=== PATIENT | female | born 1960 | race American Indian/Alaskan Native ===

== ENCOUNTER 2018-11-01 10:27 | Emergency (ER) | payer OTHER ==
[2018-11-01 10:35] VITALS: BP 157/80
--- NOTE | 2018-11-01 12:54 | Emergency Department Report ---
ED Neck Pain/Injury HPI - General Chief Complaint: Headache Stated Complaint: HEADACHE Time Seen by Provider: 11/01/18 11:13 Mode of arrival: Ambulatory Limitations: No Limitations - History of Present Illness Initial Comments: Patient is a 58-year-old female who has past medical history of hypertension and CVA who also had a MRI of her neck several months ago and was told that she had just general joint disease who is presenting with left-sided neck pain that radiates down her left arm and into the left side of her head. Patient states this is a constant pain has been present but worsening over the past 3 months. Patient was scheduled by her orthopedic doctor to have steroid injections however she declined. Patient states she was told by her primary care physician to come to the emergency department to see a neurologist. Patient has no decreased strength is no focal neurological deficits she has no headache at this time. - Related Data Previous Rx's Medication Instructions Recorded Last Taken Type HYDROcodone/APAP 5-325 [[place] 1 each PO Q6HR PRN #10 tablet 11/01/18 Unknown Rx 5/325] Allergies Allergy/AdvReac Type Severity Reaction Status Date / Time No Known Allergies Allergy Unverified 11/01/18 10:32 ED Review of Systems ROS: Stated complaint: HEADACHE Other details as noted in HPI Comment: All other systems reviewed and negative ED Past Medical Hx - Past Medical History Previous Medical History?: Yes Hx Hypertension: Yes - Surgical History Past Surgical History?: No - Social History Smoking Status: Never Smoker Substance Use Type: None - Medications Home Medications: Home Medications Medication Instructions Recorded Confirmed Last Taken Type HYDROcodone/APAP 5-325 [[place] 1 each PO Q6HR PRN #10 tablet 11/01/18 Unknown Rx 5/325] ED Physical Exam - General Limitations: No Limitations General appearance: alert, in no apparent distress - Head Head exam: Present: atraumatic, normocephalic - Eye Eye exam: Present: normal appearance, PERRL, EOMI - ENT ENT exam: Present: mucous membranes moist - Neck Neck exam: Present: normal inspection, tenderness (left neck) - Respiratory Respiratory exam: Present: normal lung sounds bilaterally. Absent: respiratory distress, wheezes, rales, rhonchi - Cardiovascular Cardiovascular Exam: Present: regular rate, normal rhythm. Absent: systolic murmur, diastolic murmur, rubs, gallop - GI/Abdominal GI/Abdominal exam: Present: soft, normal bowel sounds. Absent: distended, tenderness, guarding - Extremities Exam Extremities exam: Present: normal inspection, full ROM, tenderness - Back Exam Back exam: Present: normal inspection - Neurological Exam Neurological exam: Present: alert, oriented X3 - Psychiatric Psychiatric exam: Present: normal affect, normal mood - Skin Skin exam: Present: warm, dry, intact, normal color. Absent: rash ED Course Vital Signs 11/01/18 10:34 Temperature 97.8 F Pulse Rate 70 Respiratory 18 Rate Blood Pressure 157/80 O2 Sat by Pulse 96 Oximetry ED Medical Decision Making - Medical Decision Making Had a lengthy conversation with the patient regarding use of the emergency department. Unfortunately I believe the patient has been advised to come to the emergency department to see a neurologist for an issue that has been present for approximately 3 months. Patient urged to return back to the orthopedic physician. Patient was given several neurologist for follow-up. Patient states that the naproxen she takes her pain is not helping and well as several days of Vicodin. The patient will need to see primary care or another physician for continued pain management. Patient does have [employer] [place] and it could also use the [place] for all these resources well. Critical care attestation.: If time is entered above; I have spent that time in minutes in the direct care of this critically ill patient, excluding procedure time. ED Disposition Clinical Impression: Cervical radiculopathy Disposition: TO HOME OR SELFCARE Is pt being admited?: No Does the pt Need Aspirin: No Condition: Stable Referrals: DEVORAH SEGURA MD [Staff Physician] - 3-5 Days KOKI DURAN MD [Referring] - 3-[address] MD [Referring] - 3-5 Days DAYNA SANTOS MD [Staff Physician] - 3-5 Days Time of Disposition: 12:54
== END 2018-11-01 13:16 | disposition home or self-care (01) ==
LOC: ED 10:27
DX: M54.12 Radiculopathy, cervical region (principal); I10 Essential (primary) hypertension; Z79.899 Other long term (current) drug therapy
CPT/HCPCS: 99282